=== PATIENT | female | born 1950 | race Caucasian/White ===

== ENCOUNTER 2016-12-23 02:00 | Emergency (ER) | payer MEDICARE ==
[2016-12-23] MEDS ORDERED: Ondansetron HCl/PF 4 MG/2 ML Vial ONE (02:13)
[2016-12-23 02:45] LABS: #Basophils 0.1 thou/uL (0.0-0.2); #Eosinphils 0.1 thou/uL (0.0-0.7); #Lymphocytes 1.2 thou/uL (1.20-3.40); #Monocytes 0.9 thou/uL (0.11-0.59); #Neutrophils 7.5 thou/uL (1.40-6.50); %Basophils 0.7 % (0.0-1.0); %Eosinophils 0.8 % (0.0-10.0); %Monocytes 9.4 % (0.0-10.0); Hematocrit 52.7 % (36.0-47.0); Mean Platelet Volume 8.1 fL (7.4-10.4); Red Blood Cell (RBC) Count 6.06 mill/uL (4.20-5.40); White Blood Cell (WBC) Count 9.8 thou/uL (4.8-10.8)
[2016-12-23 03:04] LABS: ALT (SGPT) 113 U/L (8-55); AST (SGOT) 120 U/L (5-34); Alkaline Phosphatase 74 U/L (40-150); Anion Gap 14 mmol/L (10-20); BUN (Urea Nitrogen) 9 mg/dL (9.8-20.1); Bilirubin, Total 0.8 mg/dL (0.2-1.2); Calc. Creatinine Clearance 0 mL/min (70-130); Calcium 9.2 mg/dL (7.8-10.44); Carbon Dioxide 26 mmol/L (23-31); Chloride 101 mmol/L (98-107); Estimated GFR-MDRD 52; Globulin 3.7 g/dL (2.4-3.5); Protein, Total 8.2 g/dL (6.0-8.3)
[2016-12-23 04:57] LABS: Bilirubin Negative (Negative); Blood, Urine Small (Negative); Glucose, Urine (Dipstick) Negative (Negative); Ketone, Urine Trace mg/dL (Negative); Nitrite Negative (Negative); Protein, Urine (Dipstick) Negative (Neg-Trace); Urobilinogen 0.2 mg/dL (0.2-1.0)
--- NOTE | 2016-12-23 07:45 | RAD ---
EXAM: ONE VIEW CHEST: HISTORY: Dyspnea. COMPARISON: 01/16/15. FINDINGS: Portable upright chest demonstrates a normal cardiac silhouette. The pulmonary vessels and hilum are normal. Costophrenic angles are clear. No mass. No consolidation. Old right rib fracture. No pn eumothorax. IMPRESSION: No acute cardiopulmonary process. POS: [facility]
== END 2016-12-23 05:13 | disposition home or self-care (01) ==
LOC: ERS 02:00
DX: J18.9 Pneumonia, unspecified organism (principal); I10 Essential (primary) hypertension; M19.90 Unspecified osteoarthritis, unspecified site; M81.0 Age-related osteoporosis without current pathological fracture; F41.9 Anxiety disorder, unspecified; F20.9 Schizophrenia, unspecified; Z79.899 Other long term (current) drug therapy
CPT/HCPCS: 71010; 80053; 81003; 81015; 85025; 87086; 94640; 94760; 96361; 96374; 96375; J0696; J2405; J7620

== ENCOUNTER 2017-07-10 01:01 | Emergency (ER) | payer MEDICARE ==
--- NOTE | 2017-07-10 10:10 | RAD ---
CHEST PA AND LATERAL 2 VIEWS: Date: 07/10/17 HISTORY: 66-year-old female with history of cough. COMPARISON: 12/23/16. FINDINGS: Stable increased markings bilaterally, with some biapical pleural thickening. Healed right rib fractu re. Heart size is within normal limits. IMPRESSION: Stable bilateral chronic changes. No acute intrathoracic disease. POS: [facility]
== END 2017-07-10 03:32 | disposition home or self-care (01) ==
LOC: ERS 01:01
DX: R05 Cough (principal); I10 Essential (primary) hypertension; F41.9 Anxiety disorder, unspecified; F20.9 Schizophrenia, unspecified; M81.0 Age-related osteoporosis without current pathological fracture; Z79.899 Other long term (current) drug therapy
CPT/HCPCS: 71046

== ENCOUNTER 2017-12-03 17:34 | Emergency (ER) | payer MEDICARE, OTHER ==
--- NOTE | 2017-12-03 18:02 | RAD ---
CHEST ONE VIEW: 12/03/17 HISTORY: Chest pain. COMPARISON: 12/23/16. FINDINGS: The cardiac silhouette and pulmonary vasculature are unremarkable. Mediastinum is midline. Calcified granulomata are consistent with healed granulomatous disease. No lobar consolidation or evidence of pneumothorax. Old right rib fractures. IMPRESSION: Chronic type findings are stable. No active cardiopulmonary abnormalities are demonstrated. POS: [facility]
[2017-12-03 18:38] LABS: #Basophils 0.1 thou/uL (0.0-0.2); #Eosinphils 0.2 thou/uL (0.0-0.7); #Lymphocytes 1.6 thou/uL (1.20-3.40); #Monocytes 0.5 thou/uL (0.11-0.59); #Neutrophils 5.6 thou/uL (1.40-6.50); %Basophils 0.9 % (0.0-1.0); %Eosinophils 2.3 % (0.0-10.0); %Lymphocytes 20.4 % (21.0-51.0); %Monocytes 6.3 % (0.0-10.0); %Neutrophils 70.2 % (42.0-75.0); Hemoglobin 16.8 g/dL (12.0-16.0); Mean Corpuscular HGB CONC 33.1 g/dL (32.0-36.0); Mean Corpuscular Volume 87.6 fL (78.0-98.0); Mean Platelet Volume 8.3 fL (7.4-10.4); Platelet Count 242 thou/uL (130-400); RBC Distribution Width 12.9 % (11.5-14.5); Red Blood Cell (RBC) Count 5.79 mill/uL (4.20-5.40)
[2017-12-03 19:02] LABS: ALT (SGPT) 117 U/L (8-55); AST (SGOT) 107 U/L (5-34); Albumin 4.3 g/dL (3.4-4.8); Alkaline Phosphatase 50 U/L (40-150); Anion Gap 14 mmol/L (10-20); BUN (Urea Nitrogen) 8 mg/dL (9.8-20.1); Bilirubin, Total 0.6 mg/dL (0.2-1.2); CK (CPK) 85 U/L (29-168); Calc. Creatinine Clearance 0 mL/min (70-130); Carbon Dioxide 23 mmol/L (23-31); Chloride 107 mmol/L (98-107); Estimated GFR-MDRD 54; Globulin 2.9 g/dL (2.4-3.5); Glucose 120 mg/dL (80-115); Protein, Total 7.2 g/dL (6.0-8.3); Sodium 140 mmol/L (136-145)
[2017-12-03 19:06] LABS: Troponin I Less than 0.010 ng/mL (< 0.028)
--- NOTE | 2017-12-03 20:02 | ULT ---
SONOGRAM RIGHT UPPER QUADRANT: 12/03/17 HISTORY: Right upper quadrant pain. FINDINGS: Gallbladder is incompletely distended. Shadowing from the gallbladder lumen has the appearance of st ones. Minimal pericholecystic fluid. Common duct is 0.6 cm. Liver is echogenic without focal mass or intrahepatic biliary dilatation. IMPRESSION: Cholelithiasis. No evidence of acute biliary obstruction. Hepatosteatosis. POS: [facility]
== END 2017-12-03 20:27 | disposition home or self-care (01) ==
LOC: ERS 17:34
DX: K80.20 Calculus of gallbladder without cholecystitis without obstruction (principal); R07.9 Chest pain, unspecified; I10 Essential (primary) hypertension; M81.0 Age-related osteoporosis without current pathological fracture; F41.9 Anxiety disorder, unspecified; F20.9 Schizophrenia, unspecified; Z79.899 Other long term (current) drug therapy
CPT/HCPCS: 36415; 71045; 76705; 80053; 82550; 82553; 83690; 84484; 85025; 93005; 94760

== ENCOUNTER 2019-04-27 06:42 | Emergency (ER) | payer MEDICARE, OTHER | END 2019-04-27 07:46 | disposition home or self-care (01) | LOC: ERS 06:42 | DX: R68.83 Chills (without fever) (principal); M79.674 Pain in right toe(s); I10 Essential (primary) hypertension; M81.0 Age-related osteoporosis without current pathological fracture; F41.9 Anxiety disorder, unspecified; F20.9 Schizophrenia, unspecified; Z79.899 Other long term (current) drug therapy | CPT/HCPCS: 99281 ==

== ENCOUNTER 2024-10-15 23:09 | Emergency (ER) | payer MEDICARE ==
[2024-10-16] MEDS ORDERED: predniSONE 20 MG TAB ONE (03:27)
== END 2024-10-16 04:29 | disposition home or self-care (01) ==
LOC: ERS 23:09
DX: J20.9 Acute bronchitis, unspecified (principal); I10 Essential (primary) hypertension
CPT/HCPCS: 71046; J7512